=== PATIENT | female | born 1955 | race African-American/Black ===

== ENCOUNTER 2023-02-03 04:01 | Inpatient (IN) | payer OTHER ==
[2023-02-03] MEDS ORDERED: Vasopressin 20 UNITS/ML VIAL ONE ×2 (04:03→04:55)
[2023-02-03] MEDS ORDERED: NOREPINEPHRINE 8 MG/250 ML-D5W 250 ML ONE ×2 (04:03→07:05)
[2023-02-03] MEDS ORDERED: Sodium Chloride 0.9% 100 ML ONE ×2 (04:14→04:16)
[2023-02-03] MEDS ORDERED: Cefepime 2 GM VIAL ONE ×2 (04:14→04:15)
[2023-02-03] MEDS ORDERED: Vancomycin 1 GM/200 ML (FROZEN) BAG ONE (04:15)
[2023-02-03] MEDS ORDERED: Midazolam HCl 2 mg/2 ml Vial ONE ×3 (04:18→05:42)
[2023-02-03 04:20] LABS: Hematocrit 30.5 % (36.0-47.0); Hemoglobin 8.6 g/dL (12.0-16.0); Manual Diff?? YES; Mean Corpuscular HGB CONC 28.2 g/dL (32.0-36.0); Mean Corpuscular Hemoglobin 26.4 pg (27.0-31.0); Mean Corpuscular Volume 93.6 fl (78.0-98.0); Mean Platelet Volume 10.6 fL (7.4-10.4); Platelet Count 183 10x3/uL (130-400); RBC Distribution Width 13.3 % (11.5-14.5); Red Blood Cell (RBC) Count 3.26 mill/uL (4.20-5.40); White Blood Cell (WBC) Count 28.7 10x3/uL (4.8-10.8)
[2023-02-03] MEDS ORDERED: Fentanyl CADD 100 ML IV SCH ×2 (04:30→07:30)
[2023-02-03 04:32] LABS: Delete Auto Diff?? YES
[2023-02-03] MEDS ORDERED: Hydrocortisone Sod Succ/PF 100 mg/2 ml Vial ONE ×2 (04:32→04:33)
[2023-02-03 04:39] LABS: Analyzer IN Cardio ER; Base Excess (BEa) -13.1 mEq/L (-2.0 to +3.0); Calcium, Ionized (arterial) 1.22 mmol/L (1.12-1.30); Carboxyhemoglobin (COHb) 0.7 gm% (0.0-3.0); Hematocrit-ABG 27 % (36.0-47.0); Hemoglobin (Hb) 9.2 g/dL (12.0-16.0); O2 Tension (PaO2), arterial 142.1 mmHg (> 80.0); Potassium - ABG Lab 4.57 mmol/L (3.70-5.30); pH, Arterial 7.268 (7.35-7.45)
[2023-02-03 04:45] LABS: ALT (SGPT) 631 U/L (8-55); AST (SGOT) 625 U/L (5-34); Albumin 1.6 g/dL (3.4-4.8); Alkaline Phosphatase 123 U/L (40-110); Anion Gap 27 mmol/L (10-20); BUN (Urea Nitrogen) 19 mg/dL (9.8-20.1); Bilirubin, Total 0.5 mg/dL (0.2-1.2); Calc. Creatinine Clearance 0 mL/min (70-130); Carbon Dioxide 19 mmol/L (23-31); Chloride 104 mmol/L (98-107); Estimated GFR 33; Globulin 1.5 g/dL (2.4-3.5); Glucose 79 mg/dL (80-115); Magnesium 2.3 mg/dL (1.6-2.6); Potassium 3.8 mmol/L (3.5-5.1); Protein, Total 3.1 g/dL (5.8-8.1); Sodium 146 mmol/L (136-145)
[2023-02-03 04:48] LABS: Calcium 6.9 mg/dL (7.8-10.44)
[2023-02-03 04:49] LABS: Troponin I 0.019 ng/mL (< 0.028)
[2023-02-03] MEDS ORDERED: Rocuronium Bromide 10 MG/ML (10ML VIAL) ONE ×2 (04:51→05:30)
[2023-02-03] MEDS ORDERED: Ketamine In 0.9 % NaCl 50 MG/5 ML SYRINGE ONE (04:51)
[2023-02-03 04:55] LABS: Actual Bicarbonate (HCO3a) 12.5 mEq/L (22-28)
[2023-02-03 04:56] LABS: Puncture Site Arterial Line
[2023-02-03] MEDS ORDERED: Sodium Bicarb 50 MEQ/50 ML VIAL ONE ×5 (04:56→08:27)
[2023-02-03] MEDS ORDERED: Albumin 5% 0 ML ONE ×2 (04:56→08:20)
[2023-02-03 05:10] LABS: Band 9 % (5-11); CellaVision Operator ID LAB.CLH1; Eosinophils 7 % (0-10); Hypochromia SLIGHT = 6-15 cells HPF (0-5); Large Platelets 0.9 % (0-5); Lymphocytes 12 % (21-51); Monocytes 9 % (0-10); Neutrophil 62 % (42-75); Nucleated RBC (Manual Ct) 1 % (0); Platelet Adequacy Comment Platelets Normal; Reactive Lymphocytes 1 % (0-10); Total Cell Count 107
[2023-02-03] MEDS ORDERED: Calcium Chloride 1 GM/10 ML Abboject SYRINGE ONE ×2 (05:30→06:10)
[2023-02-03] MEDS ORDERED: Dextrose 50% Abboject 50 ML SYRINGE ONE (06:11)
[2023-02-03] MEDS ORDERED: Insulin Regular 300 UNITS/3 ML VIAL ONE (06:38)
[2023-02-03] MEDS ORDERED: Vasopressin 20 UNITS in Sodium Chloride 0.9% 50 ML IV PRN (07:19)
[2023-02-03] MEDS ORDERED: NOREPINEPHRINE 8 MG/250 ML-D5W 250 ML IVPB PRN (07:19)
[2023-02-03] MEDS ORDERED: Electrolyte Replacement Protocol 1 EACH IVPB ONE (07:19)
[2023-02-03] MEDS ORDERED: Ipratropium/Albuterol 3 ML NEB NEB PRN (07:19)
[2023-02-03] MEDS ORDERED: Sodium Bicarbonate 150 MEQ in Dextrose 5% in Water 1,000 ML IV PRN (07:27)
[2023-02-03] MEDS ORDERED: Acetaminophen 650 MG/20.3 ML UDCUP PO PRN (07:27)
[2023-02-03] MEDS ORDERED: Propofol 1,000 MG/100 ML VIAL IV PRN (07:30)
[2023-02-03] MEDS ORDERED: Sodium Bicarb 50 MEQ/50 ML Abboject 8.4% SYRINGE IVP SCH ×3 (07:30→08:30)
[2023-02-03] MEDS ORDERED: Electrolyte Replacement Protocol FS PRN (07:30)
[2023-02-03] MEDS ORDERED: Morphine 2 MG/ML VIAL SLOW IVP PRN (07:30)
[2023-02-03] MEDS ORDERED: EPINEPHrine 4 MG in Dextrose 5% in Water 250 ML IV SCH (07:30)
[2023-02-03] MEDS ORDERED: Propofol BOLUS 1,000 MG/100 ML VIAL IV PRN (07:30)
[2023-02-03] MEDS ORDERED: Fentanyl BOLUS 250 ML IVPB PRN (07:30)
[2023-02-03] MEDS ORDERED: Ventilator Sedation Protocol 1 EACH FS SCH (07:30)
[2023-02-03] MEDS ORDERED: Lorazepam 2 MG/ML VIAL SLOW IVP PRN (07:30)
[2023-02-03] MEDS ORDERED: Albumin 25% 100 ML ONE ×2 (07:36→08:21)
[2023-02-03 07:39] LABS: Base Excess (BEa) -17.7 mEq/L (-2.0 to +3.0); CO2 Tension 27.1 mmHg (35.0-45.0); Calcium, Ionized (arterial) 1.16 mmol/L (1.12-1.30); Carboxyhemoglobin (COHb) 1.5 gm% (0.0-3.0); Hematocrit-ABG 28 % (36.0-47.0); Hemoglobin (Hb) 9.5 g/dL (12.0-16.0); Potassium - ABG Lab 5.89 mmol/L (3.70-5.30)
[2023-02-03 07:40] LABS: Hematocrit 30.8 % (36.0-47.0); Hemoglobin 9.2 g/dL (12.0-16.0); Manual Diff?? YES; Mean Corpuscular HGB CONC 29.9 g/dL (32.0-36.0); Mean Corpuscular Hemoglobin 28.7 pg (27.0-31.0); Mean Platelet Volume 10.3 fL (7.4-10.4); Platelet Count 139 10x3/uL (130-400); RBC Distribution Width 13.9 % (11.5-14.5); Red Blood Cell (RBC) Count 3.21 mill/uL (4.20-5.40); White Blood Cell (WBC) Count 25.4 10x3/uL (4.8-10.8)
[2023-02-03 07:44] LABS: Actual Bicarbonate (HCO3a) 9.4 mEq/L (22-28); Puncture Site Arterial Line
[2023-02-03] MEDS ORDERED: Lactated Ringer's 1,000 ML IV SCH (07:45)
[2023-02-03] MEDS ORDERED: Sodium Bicarb 50 MEQ/50 ML VIAL IVP SCH (07:45)
[2023-02-03] MEDS ORDERED: Vasopressin 20 UNITS in Sodium Chloride 0.9% 50 ML IV SCH (07:45)
[2023-02-03] MEDS ORDERED: Sodium Chloride 0.9% 1,000 ML IV SCH (07:45)
[2023-02-03] MEDS ORDERED: Sodium Bicarbonate 150 MEQ in Dextrose 5% in Water 1,000 ML IV SCH ×2 (07:45→08:16)
[2023-02-03 07:48] LABS: Delete Auto Diff?? YES
[2023-02-03] MEDS ORDERED: HumaLOG 300 UNITS/3 ML VIAL SC PRN (07:49)
[2023-02-03] MEDS: Sodium Bicarb 50 MEQ/50 ML VIAL ONE ×5 (07:50→08:35)
[2023-02-03] MEDS ORDERED: Glucagon 1 MG/ML KIT IM PRN (08:00)
[2023-02-03] MEDS ORDERED: Dextrose 50% Abboject 50 ML SYRINGE IVP PRN (08:00)
[2023-02-03] MEDS ORDERED: Dextrose 5% in Water 1,000 ML IV PRN (08:00)
[2023-02-03 08:14] LABS: ALT (SGPT) 5388 U/L (8-55)
[2023-02-03] MEDS ORDERED: Albumin 25% 25 GM/100 ML BOT IVPB SCH ×2 (08:15→12:00)
[2023-02-03 08:20] LABS: AST (SGOT) Greater than 3500 U/L (5-34); Albumin Less than 1.0 g/dL (3.4-4.8); Alkaline Phosphatase 109 U/L (40-110); Anion Gap 31 mmol/L (10-20); BUN (Urea Nitrogen) 20 mg/dL (9.8-20.1); Bilirubin, Total 0.4 mg/dL (0.2-1.2); Calc. Creatinine Clearance 0 mL/min (70-130); Calcium 8.3 mg/dL (7.8-10.44); Carbon Dioxide 9 mmol/L (23-31); Chloride 106 mmol/L (98-107); Estimated GFR 31; Glucose 217 mg/dL (80-115); Potassium 6.3 mmol/L (3.5-5.1); Sodium 140 mmol/L (136-145)
[2023-02-03 08:21] LABS: Lactic Acid 20.1 mmol/L (0.5-2.2)
[2023-02-03] MEDS ORDERED: EPINEPHrine 1 MG/10 ML Abboject SYRINGE ONE (08:23)
[2023-02-03 08:53] VITALS: TEMP 97.3
[2023-02-03] MEDS ORDERED: Cefepime 2 GM in Sodium Chloride 0.9% 100 ML IVPB SCH (09:00)
[2023-02-03] MEDS ORDERED: Famotidine/PF 20 mg/2ml Vial SLOW IVP SCH ×2 (09:00→21:00)
[2023-02-03 09:05] LABS: Band 13 % (5-11); Burr Cells MARKED = >16 cells HPF (0-1); CellaVision Operator ID LAB.GE; Eosinophils 2 % (0-10); Giant Platelets 0.8 % (0-5); Large Platelets 2.5 % (0-5); Lymphocytes 10 % (21-51); Metamyelocyte 4 % (0-0); Monocytes 3 % (0-10); Myelocyte 2 % (0-0); Neutrophil 66 % (42-75); Nucleated RBC (Manual Ct) 2 % (0); Platelet Adequacy Comment Platelets Normal; Polychromasia MODERATE = 3-4 cells HPF (0-2); Total Cell Count 120; Vacuoles SLIGHT
[2023-02-03] MEDS ORDERED: Calcium Chloride 1 GM/10 ML Abboject SYRINGE IVP SCH (09:45)
[2023-02-03] MEDS ORDERED: Dextrose 50% Abboject 50 ML SYRINGE SLOW IVP SCH (09:45)
[2023-02-03] MEDS ORDERED: Insulin Regular 300 UNITS/3 ML VIAL IVP SCH (09:45)
[2023-02-03 09:58] VITALS: BMI 16.8
[2023-02-03 10:32] VITALS: BP 37/21
[2023-02-03] MEDS ORDERED: Hydrocortisone Sod Succ/PF 100 mg/2 ml Vial IVP SCH (10:45)
[2023-02-03 11:55] LABS: Mean Corpuscular HGB CONC 31.3 g/dL (32.0-36.0); Mean Corpuscular Hemoglobin 31.1 pg (27.0-31.0); Mean Platelet Volume 10.1 fL (7.4-10.4); Platelet Count 90 10x3/uL (130-400); RBC Distribution Width 14.6 % (11.5-14.5); Red Blood Cell (RBC) Count 1.32 mill/uL (4.20-5.40)
[2023-02-03 12:00] LABS: Hematocrit 13.1 % (36.0-47.0); Hemoglobin 4.1 g/dL (12.0-16.0); Mean Corpuscular Volume 99.2 fl (78.0-98.0)
[2023-02-03 12:03] LABS: Chloride 101 mmol/L (98-107); Potassium 4.4 mmol/L (3.5-5.1); Sodium 144 mmol/L (136-145)
[2023-02-03 12:04] LABS: Calcium 8.4 mg/dL (7.8-10.44); Glucose 385 mg/dL (80-115)
[2023-02-03 12:05] LABS: White Blood Cell (WBC) Count 15.4 10x3/uL (4.8-10.8)
[2023-02-03 12:06] LABS: Anion Gap 39 mmol/L (10-20)
[2023-02-03 12:08] LABS: Calc. Creatinine Clearance 21 mL/min (70-130); Estimated GFR 28
[2023-02-03 12:09] LABS: BUN (Urea Nitrogen) 19 mg/dL (9.8-20.1)
[2023-02-03 12:12] LABS: Platelet Count 90 10x3/uL (130-400)
[2023-02-03 12:27] LABS: Carbon Dioxide 8 mmol/L (23-31)
[2023-02-03 12:28] LABS: PTT Greater than 250.0 sec (22.9-36.1); Prothrombin Time Greater than 150.0 sec (12.0-14.7)
[2023-02-03 12:29] LABS: D-Dimer Test Greater than 20.00 *mcg/mL (0.27-0.43); Fibrinogen Less than 30 mg/dL (253-463)
== END 2023-02-03 15:30 | disposition expired | DRG 853 ==
LOC: ERS 04:01 → SDC 05:15 → CCU 06:47
PROVIDERS: ADMIT Specialist; ATTEND Specialist
PROC: 5A12012 Performance of Cardiac Output, Single, Manual (ICD-10-PCS; principal; 2023-02-03)
PROC: 0DNV0ZZ Release Mesentery, Open Approach (ICD-10-PCS; 2023-02-03)
PROC: 3E0M05Z Introduction of Adhesion Barrier into Peritoneal Cavity, Open Approach (ICD-10-PCS; 2023-02-03)
PROC: 30233N1 Transfusion of Nonautologous Red Blood Cells into Peripheral Vein, Percutaneous Approach (ICD-10-PCS; 2023-02-03)
PROC: 4A133R1 Monitoring of Arterial Saturation, Peripheral, Percutaneous Approach (ICD-10-PCS; 2023-02-03)
PROC: 3E033XZ Introduction of Vasopressor into Peripheral Vein, Percutaneous Approach (ICD-10-PCS; 2023-02-03)
PROC: 30233J1 Transfusion of Nonautologous Serum Albumin into Peripheral Vein, Percutaneous Approach (ICD-10-PCS; 2023-02-03)
PROC: 5A1935Z Respiratory Ventilation, Less than 24 Consecutive Hours (ICD-10-PCS; 2023-02-03)
DX: A41.9 Sepsis, unspecified organism (principal); R65.21 Severe sepsis with septic shock; J96.00 Acute respiratory failure, unspecified whether with hypoxia or hypercapnia; K46.0 Unspecified abdominal hernia with obstruction, without gangrene; E87.20 Acidosis, unspecified; N17.9 Acute kidney failure, unspecified; K55.9 Vascular disorder of intestine, unspecified; Z68.1 Body mass index [BMI] 19.9 or less, adult; Z66 Do not resuscitate; E66.9 Obesity, unspecified; I10 Essential (primary) hypertension; I46.8 Cardiac arrest due to other underlying condition; K66.0 Peritoneal adhesions (postprocedural) (postinfection); E87.5 Hyperkalemia; Z90.710 Acquired absence of both cervix and uterus; Z98.890 Other specified postprocedural states
CPT/HCPCS: 36416; 36430; 71045; 80053; 82805; 83605; 83690; 83735; 83880; 84484; 85025; 85049; 85300; 85362; 85379; 85384; 85610; 85730; 86850; 86900; 86901; 87040; 93005; 94002; 94760; A4314; J0171; J0692; J1720; J1815; J2250; J3010; J3370-JW; J3490; J7050; J7070; J7120; J7999; P9016; P9045; P9047